=== PATIENT | male | born 1995 | race Hispanic/Latino ===

== ENCOUNTER 2017-08-04 16:44 | Emergency (ER) | payer MEDICAID ==
[2017-08-04 16:57] VITALS: BP 137/80; PULSE 83; RESP 16; TEMP 97.8; O2SAT 100
--- NOTE | 2017-08-04 19:08 | ED PDOC ---
HPI: Male Pain Time Seen by Provider: 08/04/17 19:00 Chief Complaint (Nursing): Male Genitourinary Chief Complaint (Provider): Possible Infection History Per: Patient History/Exam Limitations: no limitations Current Symptoms Are (Timing): Still Present Additional Complaint(s): Jon is a 22 y/o male who presents to the ED complaining of itching around his genitals and rash all over his body. He also states he had painless lesions that have resolved. Patient admits to having unprotected sex a week ago and believes he might have gotten syphilis. PMD: None Past Medical History Reviewed: Historical Data, Nursing Documentation, Vital Signs Vital Signs: Last Vital Signs Temp 97.8 F 08/04/17 16:53 Pulse 83 08/04/17 16:53 Resp 16 08/04/17 16:53 BP 137/80 08/04/17 16:53 Pulse Ox 100 08/04/17 16:53 - Family History Family History: States: Unknown Family Hx - Allergies Allergies/Adverse Reactions: Allergies Allergy/AdvReac Type Severity Reaction Status Date / Time No Known Allergies Allergy Verified 08/04/17 16:53 Review of Systems Genitourinary Male: Positive for: Rash, Other (itchiness) Skin: Positive for: Rash - ECG O2 Sat by Pulse Oximetry: 100 (RA) Pulse Ox Interpretation: Normal Medical Decision Making Medical Decision Making: Time: 19:00 Initial Impression: Possible Syphilis Initial Plan: --GC Culture --Rapid Plasma Reagin --Penicillin --Flagyl --Rocephin --Zithromax Scribe Attestation: Documented by Gerard Ashley acting as a scribe for Eliud Bell PA-C MD Scribe Attestation: All medical record entries made by the Scribe were at my direction and personally dictated by me. I have reviewed the chart and agree that the record accurately reflects my personal performance of the history, physical exam, medical decision making, and the department course for this patient. I have also personally directed, reviewed, and agree with the discharge instructions and disposition. Disposition - Clinical Impression Clinical Impression: STD exposure - Patient ED Disposition Is Patient to be Admitted: No Counseled Patient/Family Regarding: Studies Performed, Diagnosis, Need For Followup - Disposition Disposition: Routine/Home Disposition Time: 19:39 Condition: GOOD Instructions: Syphilis, Chlamydia and Gonorrhea, Syphilis (DC), Chlamydia (DC) Forms: [employer] ([place])
[2017-08-04] MEDS ORDERED: cefTRIAXone (Rocephin) 250 mg Inj IM ONE (19:28)
[2017-08-04] MEDS ORDERED: Penicillin G Benzathine 2.4 Mill Unit/4 ml Syr IM ONE (19:33)
[2017-08-06 17:38] LABS: RAPID PLASMA REAGIN REACTIVE (NONREACTIVE)
== END 2017-08-04 20:24 | disposition home or self-care (01) ==
LOC: H.ER 16:44
DX: R76.8 Other specified abnormal immunological findings in serum (principal); Z20.2 Contact with and (suspected) exposure to infections with a predominantly sexual mode of transmission
CPT/HCPCS: 86592; 86780; 87081; 96372; 99284; J0561; J0696